=== PATIENT | female | born 1995 | race American Indian/Alaskan Native ===

== ENCOUNTER 2020-09-17 19:38 | Emergency (ER) | payer OTHER ==
[~2020-09-17] VITALS: Ht 167.6 cm; Wt 64.4 kg
[~2020-09-17 19:38] MED LIST: Bactroban22 GM TOP; CEPH500 PO; CODACE30 PO; CYCL10 PO; ESCI10 PO; Mobic7.5 MG PO; Norco 5-325 Ta1 EACH PO; Pepcid20 MG PO; Percocet 5-3251 EACH PO; TRAM50 PO; Zofran Odt8 MG SL
[2020-09-17] MEDS ORDERED: BUSPIRONE HCL7.5 M1 PO (20:02)
[2020-09-17] MEDS ORDERED: ESCI10 PO (20:02)
[2020-09-17] MEDS ORDERED: AMOCLA875 PO (21:59)
== END 2020-09-17 20:06 | disposition home or self-care (01) ==
LOC: ER 19:38
DX: S61.250A Open bite of right index finger without damage to nail, initial encounter (principal); F17.210 Nicotine dependence, cigarettes, uncomplicated; Z79.899 Other long term (current) drug therapy; Z23 Encounter for immunization; W54.0XXA Bitten by dog, initial encounter
CPT/HCPCS: 73140; 90471; 90714; 99283-25; A9270

== ENCOUNTER → 2023-04-28 | Outpatient (CLI) | payer OTHER ==
[~2023-04-28] MED LIST changes: +AMOCLA875 PO; +BUSPIRONE HCL7.5 M1 PO
== END ==
LOC: LAB 08:14 → LAB SHORT 08:14
DX: N87.1 Moderate cervical dysplasia (principal)
CPT/HCPCS: 88305